=== PATIENT | female | born 1995 | race Caucasian/White ===

== ENCOUNTER 2019-12-20 15:57 | Emergency (ER) | payer SELFPAY ==
--- NOTE | 2019-12-20 16:27 | XR_ITS ---
WS: [id number] XR chest 1V portable [id number] REASON FOR EXAM: cough/congestion FINDINGS: The heart mediastinum are normal. lung rubi are well aerated no pneumonia or congestive s een. The hilum and apices are normal. No osseous abnormalities. XR/XR chest 1V portable [id number] IMPRESSION: Normal chest no active pathology.
[2019-12-20 16:34] VITALS: PULSE 74; RESP 18; TEMP 36.9; O2SAT 99; BMI 41.9
[2019-12-20 20:07] VITALS: BP 137/57; PULSE 79; RESP 18; O2SAT 99
[2019-12-20 21:33] LABS: Influenza A by IFA Negative (Negative); Influenza B by IFA Negative (Negative)
--- NOTE | 2019-12-20 21:36 | ED_ITS ---
Entered by Maria Del Carmen Espino, acting as scribe for Jose Herbert DO Dec 20, 2019 15:57 HPI - SOB/Dyspnea General: Chief Complaint: Shortness of Breath/Dyspnea Stated Complaint: Cough/Congestion/Sorethroat Time Seen by Provider: 12/20/19 21:35 Source: patient Mode of arrival: ambulatory Limitations: no limitations History of Present Illness: HPI Narrative: 24 yo f came to the er pov for cough, congestion and sore throat. Onset was today. Pt states that she has diarrhea but has ibs-d. Pt has been having some trouble with her congestion and cough. Pt said that when she takes a deep breath in she starts coughing. MD elicited complaint: cough Onset (ago): day(s) (today) Context: recent illness Timing: constant Severity: mild Exacerbating factors: nothing and deep breaths Relieving factors: nothing Associated symptoms: Reports chest congestion, cough and other (sore throat); Deny abdominal pain, chest pain, fever(s), nausea, orthopnea or vomiting Treatment prior to arrival: none Review of Systems Const: Denies: fever, chills, body aches, change in appetite, fatigue or malaise ENMT: Reports: throat pain Card: Denies: chest pain, edema, shortness of breath on exertion or shortness of breath when lying down Resp: Reports: productive cough and chest congestion GI: Denies: abdominal pain, nausea, vomiting, vomiting blood, coffee grounds in vomit, diarrhea, constipation, bloating, blood in stool or black tarry stool : Denies: flank pain, difficulty urinating, painful urination, urinary frequency or urinary urgency Skin/Breast: Denies: rash or itching PFSH ED PFSH: Social History Smoking and tobacco status: former smoker Female Reproductive History: Date of last menstrual period: 12/02/19 Physical Exam Const: COMMON NORMALS: average body habitus, oriented x3 and alert GENERAL APPEARANCE: cooperative, comfortable, well kempt and well developed NUTRITIONAL APPEARANCE: obese ORIENTATION/CONSCIOUSNESS: Yes awake, Yes oriented to person and Yes oriented to place HENMT: COMMON NORMALS: normocephalic, head/scalp atraumatic, EAC's normal, TM's normal bilaterally, external nose normal, moist oral mucous membranes and oropharynx normal HEAD & SCALP: normocephalic and atraumatic NOSE: external nose normal EXTERNAL AUDITORY CANAL: EAC's normal TYMPANIC MEMBRANE: TM's normal bilaterally MOUTH: oral and palatal mucosa normal, lip normal and tongue normal THROAT: posterior oropharynx normal and tonsils normal Eye: COMMON NORMALS: PERRL, EOMs intact bilaterally, conjunctivae normal and no scleral icterus CONJUNCTIVA: Yes conjunctivae normal PUPIL: Yes PERRL Neck/C-Spine: COMMON NORMALS: full ROM, no lymphadenopathy, supple, no meningeal signs and thyroid normal THYROID: thyroid normal and asymmetrical Lymph: LYMPHATIC: no lymphadenopathy noted Resp: COMMON NORMALS: normal respiratory effort, no retractions, no use of accessory muscles and clear to auscultation bilaterally AUSCULTATION: clear to auscultation bilaterally Cardio: COMMON NORMALS: regular rate and regular rhythm RATE: regular rate RHYTHM: regular rhythm HEART SOUNDS: no murmurs GI: COMMON NORMALS: normal to inspection, nondistended, normoactive bowel sounds, soft to palpation and no hepatosplenomegaly PALPATION: Yes soft and Yes no hepatosplenomegaly : COMMON NORMALS: Yes no CVA tenderness BLADDER/KIDNEY EXAM: Yes no CVA tenderness Back/Pelvis: COMMON NORMALS: no CVA tenderness LUMBAR SPINE/LOWER BACK: Yes normal to inspection Extremity: COMMON NORMALS: no clubbing, cyanosis or edema, no calf tenderness and no pedal edema Neuro: COMMON NORMALS: oriented x3 SENSORIUM/ORIENTATION: Yes alert, Yes oriented to person and Yes oriented to place MENINGEAL SIGNS: Yes no meningeal signs Psych: APPEARANCE: Yes well kempt Skin: COMMON NORMALS: no rashes or lesions noted and skin turgor normal GENERAL SKIN EXAM: no rashes or lesions noted and turgor normal Course ED course: No significant findings on exam. We will go and discharge home with steroids and albuterol inhaler return if has further problems. Chest x-ray was unremarkable. Flu swabs negative. Vital Signs: Vital signs: Vital Signs Temperature 97.8 F 12/20/19 21:44 Pulse Rate 78 12/20/19 21:44 Respiratory Rate 18 12/20/19 21:44 Blood Pressure 145/100 12/20/19 21:44 Pulse Oximetry 98 12/20/19 21:44 MDM - SOB/Dyspnea Lab Data: Labs: Lab Results 12/20/19 Range/Units 20:55 Influenza Type A A g Negative (Negative) POC Influenza B Ag Negative (Negative) Discharge Plan Discharge Patient Disposition: Home, Self-Care Clinical Impression: Viral URI with cough Condition: Stable Prescriptions: New Medrol (Edenilson) 4 mg tablets,dose pack See Rx Instructions .ROUTE .COMPLEX Qty: 21 RF: 0 albuterol sulfate 90 mcg/actuation HFA aerosol inhaler 2 inh INHALATION Q4H PRN (Reason: shortness of breath or wheezing) Qty: 18 RF: 0 Referrals: Pj Justin MD [Family Provider] - Discharge Diet: Usual diet Discharge Activity: Resume usual activity Discharge Date/Time: 12/20/19 21:58 Coding Level of Care Code ED Business Project Analyst for Chg Fwd Exam Comprehensive The documentation recorded by the Srinivas wiggins Stephanie Lyn, accurately reflects the service I personally performed and the decisions made by Keon wolfe Curtis L, DO Dec 20, 2019 15:57
[2019-12-20 21:44] VITALS: BP 145/100; PULSE 78; RESP 18; TEMP 36.6; O2SAT 98
== END 2019-12-20 21:58 | disposition home or self-care (01) ==
PROVIDERS: Physician Assistant; Emergency Provider Family Medicine; Family Provider Family Medicine
DX: J06.9 Acute upper respiratory infection, unspecified (principal); R05 Cough; E66.9 Obesity, unspecified; Z68.41 Body mass index [BMI] 40.0-44.9, adult; Z87.891 Personal history of nicotine dependence
CPT/HCPCS: 12345; 71045; 87804; 99281; 99283

== ENCOUNTER 2021-04-26 21:35 | Emergency (ER) | payer SELFPAY ==
[2021-04-26 21:59] VITALS: BP 139/87; PULSE 98; RESP 18; TEMP 37.7; O2SAT 94; BMI 34.4
--- NOTE | 2021-04-27 00:27 | W.ED.COVID ---
HPI - COVID General: Chief Complaint: COVID symptoms Stated Complaint: Waiting on Covid results\Eyes hurt\cant think Time Seen by Provider: 04/27/21 00:20 Triage information: Has fever, cough or shortness of breath. Exposure to COVID + person last 14 days History of Present Illness: HPI Narrative: Patient comes in with uncontrolled headache. Patient reports illness for 2 days patient has a history of migraines. Patient also has had other symptoms cough with runny nose and has a outstanding PCR test for COVID-19. Patient also reports a temperature of 100. Patient appears mildly unwell but not toxic. Patient did not receive a COVID-19 vaccine. Patient denies any other medical problems. MD complaint: has COVID symptoms Prior covid testing: yes, results pending at [facility] [place] location COVID 19 common symptoms: positive fever(s), chills, cough, fatigue, body aches, headache(s), nasal congestion and nausea COVID Results: SARS-CoV-2 RNA (RT-PCR) Pending 04/26/21 16:16 04/26/21 Review of Systems General: Reports: 10 or more systems reviewed and unremarkable except in HPI and below Const: Reports: fever(s), chills, body aches and fatigue ENMT: Reports: nasal congestion GI: Reports: nausea Neuro: Reports: headache(s) PFSH ED PFSH: Social History Smoking and tobacco status: former smoker Female Reproductive History: Date of last menstrual period: 04/05/21 Physical Exam Const: COMMON NORMALS: no acute distress and patient oriented x3 GENERAL APPEARANCE: cooperative HENMT: COMMON NORMALS: normocephalic, TM's normal bilaterally and Normal external nose present HEAD & SCALP: normal to inspection and normocephalic NOSE: Normal external nose present and Nasal discharge present TYMPANIC MEMBRANE: TM's normal bilaterally MOUTH: Normal oral and palatal mucosa present THROAT: posterior oropharynx abnormal erythema Eye: GENERAL EYE: appearance normal, both eyes and all related structures Neck/C-Spine: COMMON NORMALS: full ROM Lymph: LYMPHATIC: no lymphadenopathy noted Chest: COMMONS NORMALS: normal inspection of the chest Resp: COMMON NORMALS: normal respiratory effort EFFORT & INSPECTION: Yes able to speak in complete sentences Cardio: COMMON NORMALS: regular rate and regular rhythm RATE: regular rate RHYTHM: regular rhythm GI: COMMON NORMALS: non-tender : COMMON NORMALS: Yes no CVA tenderness BLADDER/KIDNEY EXAM: Yes no CVA tenderness Back/Pelvis: COMMON NORMALS: no CVA tenderness and thoracic and lumbar spine normal to inspection Extremity: COMMON NORMALS: normal to inspection Neuro: COMMON NORMALS: patient oriented x3 and moves all extremities Psych: COMMON NORMALS: mental status grossly normal and cooperative Skin: COMMON NORMALS: no rashes or lesions noted GENERAL SKIN EXAM: no rashes or lesions noted Course Vital Signs: Vital signs: Vital Signs Temperature 100 F H 04/26/21 21:59 Pulse Rate 98 04/26/21 21:59 Respiratory Rate 18 04/26/21 21:59 Blood Pressure 139/87 04/26/21 21:59 Pulse Oximetry 96 04/27/21 01:28 MDM - COVID MDM Narrative: Medical decision making narrative: Patient comes in today with complaints of nasal congestion, headache, body aches, and a nonproductive cough. Patient reports illness for 2 days. Exam patient has a fever of 100 degrees. Vital signs otherwise normal. Lungs are clear to auscultation. Patient has nasal congestion. Bilateral TMs are normal. Patient has some light sensitivity. Differential diagnosis includes viral syndrome, COVID-19, rhinosinusitis, migraine headache. Patient was treated for headache with ketorolac, diphenhydramine, dexamethasone 8 mg, and Reglan 10 mg. Patient was given a 500 mL bag of saline for complaints of nausea. COVID-19 PCR test is outstanding. Covid antigen test was inconclusive. Patient was recommended to drink plenty of fluids use Tylenol and ibuprofen for pain and fever and follow-up with primary care for further instruction. Lab Data: Labs: Lab Results 04/27/21 Range/Units 01:24 SARS-CoV-2 Ag (Rap id) Cancelled COVID Results: SARS-CoV-2 RNA (RT-PCR) Pending 04/26/21 16:16 04/26/21 Discharge Plan Discharge Patient Disposition: Home Clinical Impression: Suspected severe acute respiratory syndrome coronavirus 2 (SARS-CoV-2) infection Headache Qualifiers: Headache type: unspecified Headache chronicity pattern: acute headache Intractability: not intractable Qualified Code(s): R51.9 - Headache, unspecified Condition: Stable Prescriptions: No Action albuterol sulfate 90 mcg/actuation HFA aerosol inhaler 2 inh INHALATION Q4H PRN (Reason: shortness of breath or wheezing) Qty: 18 RF: 0 Discharge Orders: Discharge ED (Routine); Ordered 04/27/21 Ordered By: Jose Sandy Referrals: Pj Justin MD [Family Provider] - Discharge Diet: Usual diet Discharge Activity: Increase activity as tolerated Patient Instructions: Viral Syndrome (ED), Opioid Safety Activity Restrictions/Additional Instructions: Drink plenty of fluids. Healthy diet and activity. Follow-up with primary care as needed. Return to the emergency department for new concerns. It is important to stay well-hydrated with viral illnesses you drink plenty of fluids. Use acetaminophen and ibuprofen for pain. Coding Level of Care Code ED Ice Cream Machine Operator for Chg Fwd Exam Comprehensive
[2021-04-27 01:28] VITALS: O2SAT 96
[2021-04-27] MEDS: dexamethasone 4 mg/mL INJ 8 MG IVP (01:29)
[2021-04-27] MEDS: ketorolac 30 mg/mL INJ 15 MG IVP (01:29)
[2021-04-27] MEDS: diphenhydrAMINE 50 mg/mL SDV 1mL 25 MG IVP (01:29)
[2021-04-27] MEDS: metoclopramide 5 mg/mL SDV 2 mL 10 MG IVP (01:29)
[2021-04-27] MEDS: sodium chloride 0.9% 500 ML 999 ML IV (01:30)
[2021-04-27 02:46] VITALS: BP 132/78; PULSE 74; RESP 18; O2SAT 94
== END 2021-04-27 02:47 | disposition home or self-care (01) ==
PROVIDERS: Emergency Provider Nurse Practitioner Family; Family Provider Family Medicine
DX: R51.9 Headache, unspecified (principal); Z87.891 Personal history of nicotine dependence
CPT/HCPCS: 87635; 96374; 96375; 99283; J1100; J1200; J1885; J2765; J7040

== ENCOUNTER → 2021-10-02 16:38 | Outpatient (BNVA) | payer OTHER, SELFPAY | PROVIDERS: Family Provider Family Medicine; Visit Provider Nurse Practitioner Family | DX: Z20.822 Contact with and (suspected) exposure to COVID-19 (principal) | CPT/HCPCS: 87635 ==

== ENCOUNTER → 2021-11-13 14:28 | Outpatient (BNVA) | payer OTHER, SELFPAY | PROVIDERS: Family Provider Family Medicine; Visit Provider Nurse Practitioner Family | DX: J45.909 Unspecified asthma, uncomplicated (principal); J06.9 Acute upper respiratory infection, unspecified; Z20.822 Contact with and (suspected) exposure to COVID-19 | CPT/HCPCS: 87635 ==

== ENCOUNTER → 2022-09-09 15:00 | Outpatient (BNVA) | payer OTHER, SELFPAY | PROVIDERS: Family Provider Family Medicine; Visit Provider Obstetrics & Gynecology | DX: Z01.419 Encounter for gynecological examination (general) (routine) without abnormal findings (principal) | CPT/HCPCS: 87491; 87591; 87661; 88175 ==

== ENCOUNTER 2022-09-20 13:44 | Outpatient (CLI) | payer OTHER, SELFPAY ==
[2022-09-20 14:58] LABS: Estradiol 29.6 pg/mL; Follicle Stimulating Hormone 7.1 mIU/mL; Prolactin 12.26 ng/mL (4.8-23.3); Thyroid Stimulating Hormone 1.51 uIU/mL (0.27-4.20)
== END 2022-09-20 13:45 | disposition home or self-care (01) ==
PROVIDERS: Family Provider Family Medicine; PCP Family Medicine; Visit Provider Obstetrics & Gynecology
DX: Z00.01 Encounter for general adult medical examination with abnormal findings (principal)
CPT/HCPCS: 36415; 82670; 83001; 84144; 84146; 84443

== ENCOUNTER → 2022-10-01 14:50 | Outpatient (BNVA) | payer OTHER, SELFPAY | PROVIDERS: Family Provider Family Medicine; PCP Family Medicine; Visit Provider Obstetrics & Gynecology | DX: N92.6 Irregular menstruation, unspecified (principal); N97.9 Female infertility, unspecified | CPT/HCPCS: 76830 ==

== ENCOUNTER → 2023-10-29 09:27 | Outpatient (BNVA) | payer OTHER, SELFPAY | PROVIDERS: Family Provider Family Medicine; PCP Family Medicine; Visit Provider Family Medicine | DX: L50.8 Other urticaria (principal) | CPT/HCPCS: 80053; 82785; 84439; 84443; 85025; 86003 ==

== ENCOUNTER → 2023-12-10 15:04 | Outpatient (BNVA) | payer OTHER, SELFPAY | PROVIDERS: Family Provider Family Medicine; PCP Family Medicine; Visit Provider Family Medicine | DX: L50.8 Other urticaria | CPT/HCPCS: 86003 ==

== ENCOUNTER 2023-12-23 15:33 | Outpatient (CLI) | payer OTHER, SELFPAY ==
[2023-12-30 13:03] LABS: Allergen Beef Igg 16.7 mcg/mL (<2.0); Allergen Cacao (Chocolate) Igg <2.0 mcg/mL (<2.0); Allergen Chicken Meat Igg <2.0 mcg/mL (<2.0); Allergen Orange Igg <2.0 mcg/mL (<2.0); Allergen Peanut Igg <2.0 mcg/mL (<2.0); Yeast (F45) Igg <2.0 mcg/mL (<2.0)
[2023-12-30 17:38] LABS: Egg White (F1) Ige <0.10 kU/L; Egg White Class 0; Immunoglobulin E 41 kU/L (<OR=114); Maize Corn Class 0; Maize/Corn (F8) Ige <0.10 kU/L; Oat (F7) Ige <0.10 kU/L; Oat Class 0; Pork Class 1; Potato (F35) Ige <0.10 kU/L; Potato Class 0; Rye (F5) Ige <0.10 kU/L; Rye Class 0; Soybean (F14) Ige <0.10 kU/L; Soybean Class 0; Tomato (F25) Ige <0.10 kU/L; Tomato Class 0; Wheat (F4) Ige <0.10 kU/L; Wheat Class 0
== END 2023-12-23 15:34 | disposition home or self-care (01) ==
LOC: LAB 15:36
PROVIDERS: PCP Family Medicine; Visit Provider Family Medicine
DX: L50.8 Other urticaria (principal)
CPT/HCPCS: 36415; 86003

== ENCOUNTER → 2024-01-20 16:25 | Outpatient (BNVA) | payer OTHER, SELFPAY | PROVIDERS: PCP Family Medicine; Visit Provider Registered Nurse Neonatal Intensive Care | DX: J02.9 Acute pharyngitis, unspecified (principal); R50.9 Fever, unspecified | CPT/HCPCS: 87400; 87880 ==

== ENCOUNTER 2024-09-27 13:11 | Emergency (ER) | payer SELFPAY ==
[2024-09-27 13:19] VITALS: BP 156/98; PULSE 73; RESP 14; TEMP 36.7; O2SAT 98; BMI 34.2
--- NOTE | 2024-09-27 13:28 | ED_ITS ---
HPI - Extremity Injury (Lower) 2 General: Chief Complaint: Extremity Injury, Lower Stated Complaint: Left leg pain/injury Time Seen by Provider: 09/27/24 13:22 Source: patient Mode of arrival: ambulatory Limitations: no limitations History of Present Illness: Patient is a 28-year-old female presents to ED today with complaint of lower leg injury that she sustained yesterday after accidentally falling down a flight of steps. She states she struck her lower tib-fib on the left on a portion of the stairs and has had pain and swelling here since. She denies any other injuries at this time. She is ambulatory here on the extremity without difficulty or assistance. complaint: leg injury Onset (ago): day(s) (yesterday) Place: home Severity: moderate Relieving factors: immobilization Exacerbating factors: weight bearing and palpation Context: fall Associated symptoms: Reports no associated symptoms Other symptoms: none Related Data Previous Rx's Medication Instructions Recorded albuterol sulfate 90 mcg/actuation 2 inh inhalation Q4H PRN shortness 10/31/23 aerosol inhaler of breath or wheezing #8.5 grams famotidine 20 mg tablet 20 mg PO DAILY #90 tabs 12/18/23 hydroxyzine HCl 25 mg tablet 25 mg PO BID PRN itching #30 tabs 12/18/23 amoxicillin 500 mg tablet 500 mg PO BID 10 days #20 tabs 01/20/24 hydrocortisone 1 % topical cream 1 applic topical TID PRN skin 03/10/24 irritation #28.4 grams sertraline 50 mg tablet 50 mg PO DAILY #30 tabs 04/06/24 cetirizine 10 mg tablet 10 mg PO DAILY #30 tabs 05/31/24 Allergies Allergy/AdvReac Type Severity Reaction Status Date / Time No Known Allergies Allergy Unverified 03/10/24 15:42 Review of Systems 2 Musc: Reports: extremity pain and extremity swelling; Denies: neck pain, back pain, joint pain or joint swelling Neuro: Denies: numbness in extremities or sensory changes PFSH ED 2 PFSH: Medical History Migraine History of PCOS Infertility counseling Menorrhagia with irregular cycle Family History Mother Migraines Father Bipolar 1 disorder Grandfather COPD (chronic obstructive pulmonary disease) Stroke Other Suicide Denies family history of Colon cancer Pancreatic cancer Ovarian cancer Thyroid cancer Diabetes Breast cancer Prostate cancer, BRCA2 positive Cancer Hypertension Uterine cancer Social History Smoking and tobacco/nicotine status: never used tobacco/nicotine Second hand smoke exposure: Yes Alcohol intake: current Alcohol intake frequency: holidays/special occasions only Alcohol type: wine Substance/Drug Use: never Adopted: No Caregiver/support person: No Lives independently: Yes Household members: spouse Housing: House Marital status: Highest education level completed: High School Graduate service: No Current occupational status: employed Current occupation: [employer] Current occupational exposures/hazards: No Physical Exam 2 Const: COMMON NORMALS: no acute distress, patient oriented x3, no limitations, alert and well nourished Extremity: COMMON NORMALS: capillary refill normal, no joint enlargement, no clubbing, cyanosis or edema and no pedal edema GENERAL: Yes normal exam except as noted LEFT LOWER EXTREMITY: Yes lower leg Left lower leg: Yes neurovascular exam (normal) EXTREMITY IMAGE (FRONT): 1. swelling/ecchymosis; no obvious bony deformities Neuro: COMMON NORMALS: patient oriented x3, moves all extremities, no focal motor deficits and no sensory deficits noted SENSORIUM/ORIENTATION: Yes alert Course 2 Vital Signs: Vital signs: Vital Signs Temperature 98.1 F 09/27/24 13:19 Pulse Rate 73 09/27/24 13:19 Respiratory Rate 14 09/27/24 13:19 Blood Pressure 156/98 09/27/24 13:19 Pulse Oximetry 98 09/27/24 13:19 Oxygen Delivery Me thod Room Air 09/27/24 13:19 MDM - Extremity Injury (Lower) Medical Decision Making XR of L tib/fib is prelim negative. Patient will be allowed discharge. Conservative therapies at home discussed. She may follow-up with primary care in 1 to 2 weeks if symptoms or not improving. XR interpretation done by ED provider, pending radiology final review Discharge Plan Discharge Patient Disposition: Home Clinical Impression: Contusion of left tibia Condition: Stable Prescriptions: No Action hydrocortisone 1 % cream 1 applic topical TID PRN (Reason: skin irritation) Qty: 28.4 0RF amoxicillin 500 mg tablet 500 mg PO BID 10 Days Qty: 20 0RF albuterol sulfate 90 mcg/actuation HFA aerosol inhaler 2 inh INHALATION Q4H PRN (Reason: shortness of breath or wheezing) Qty: 8.5 3RF famotidine 20 mg tablet 20 mg PO DAILY Qty: 90 1RF hydroxyzine HCl 25 mg tablet 25 mg PO BID PRN (Reason: itching) Qty: 30 0RF sertraline 50 mg tablet 50 mg PO DAILY Qty: 30 1RF cetirizine 10 mg tablet 10 mg PO DAILY Qty: 30 0RF Discharge Orders: Discharge ED (Routine); Ordered 09/27/24 Ordered By: Alma Moe Referrals: Miah Ayers MD [Primary Care Provider] - Patient Instructions: Contusion Coding Level of Care Code ED Window Covering Sales Consultant for Amparo Duran
--- NOTE | 2024-09-27 13:54 | XRR_ITS ---
PROCEDURE INFORMATION: Exam: XR Left Tibia and Fibula Exam date and time: 09/27/2024 1:58 PM Age: 28 years old Clinical indication: Injury or trauma; Fall; Blunt trauma; Lower leg; Left; Additional info: Fall/injury TECHNIQUE: Imaging protocol: Radiologic exam of the left tibia and fibula. Views: 2 views. COMPARISON: No relevant prior studies available. FINDINGS: Bones/joints: There is no evidence for acute fracture or malalignment. Soft tissues: Normal. XR/XR tibia fibula LT 2V [id number] IMPRESSION: No acute findings.
[2024-09-27 14:21] VITALS: BP 126/74; PULSE 62; O2SAT 97
== END 2024-09-27 14:22 | disposition home or self-care (01) ==
PROVIDERS: Emergency Provider Physician Assistant; PCP Family Medicine
DX: S80.12XA Contusion of left lower leg, initial encounter (principal); W10.9XXA Fall (on) (from) unspecified stairs and steps, initial encounter
CPT/HCPCS: 73590; 99283